=== PATIENT | female | born 1955 | race African-American/Black ===

== ENCOUNTER 2019-05-13 07:24 | Inpatient (IN) | payer OTHER ==
[2019-05-05 12:37] VITALS: BMI 27.6
[~2019-05-13 07:24] MED LIST: BUPIVICAINE 0.25%/MORPH PF/KETOROLAC - 51ML DISP.SYRINGE IA ONE
[2019-05-13] MEDS ORDERED: TRANEXAMIC ACID 1000 MG/10 ML VIAL IVPUSH ONE (07:39)
[2019-05-13] MEDS ORDERED: CELECOXIB 200 MG CAPSULE PO ONE (07:39)
--- NOTE | 2019-05-13 08:05 | HP ---
Satellite [facility] - Chief Complaint Chief Complaint: right knee pain - Past Medical History Allergies/Adverse Reactions: Allergies Allergy/AdvReac Type Severity Reaction Status Date / Time No Known Drug Allergies Allergy Verified 05/05/19 12:27 pollen extracts AdvReac Verified 05/05/19 12:27 - Current Medications Current Medications: Home Medications Medication Instructions Recorded Montelukast Na [Singulair -] 10 mg PO DAILY 11/25/15 Tiotropium [place] [Spiriva] 1 inh IH DAILY PRN 11/25/15 Sarecycline HCl [Seysara] 1 tab PO DAILY 05/05/19 Satellite Physical Exam - Physical Examination Vital Signs: Vital Signs Period Temp Pulse Resp BP Sys/Posada Pulse Ox Last 24 Hr 98.1 F 77 18 112/52 General Appearance: Well Nourished, Well Developed, Alert & Oriented x3 ENT: Clear Lung: Normal air movement Extremities: Other (right knee- + swelling, + ttp laterally, decr rom, nvi, xrays show grade 4 lateral djd) Neurological: Intact, Alert, Oriented Satellite Impression/Plan - Impression/Plan Impression: right knee lateral djd Operative Procedure: right lateral shimon ukr Date to be Performed: 05/13/19
[2019-05-13] MEDS ORDERED: THROMBIN (RECOMBINANT) 5,000 UNIT VIAL TP ONE (08:18)
[2019-05-13] MEDS ORDERED: ceFAZolin SODIUM 1 GM VIAL ONE ×2 (08:20→09:58)
[2019-05-13] MEDS ORDERED: MIDAZOLAM HCL 2 MG/2 ML SINGLE DOSE VIAL ONE (08:45)
[2019-05-13] MEDS ORDERED: DEXAMETHASONE SOD PHOSPHATE/PF 10 MG/ML SDV ONE (08:48)
[2019-05-13] MEDS ORDERED: SODIUM CHLORIDE 0.9% P/F 10 ML VIAL IJ ONE (08:48)
[2019-05-13] MEDS ORDERED: BUPIVACAINE HCL/PF 0.5% (5 MG/ML) 30 ML VIAL IJ ONE (08:48)
[2019-05-13] MEDS ORDERED: BUPIVACAINE HCL/PF 0.5% (5MG/ML) 10 ML VIAL ONE (08:52)
[2019-05-13] MEDS ORDERED: CEFAZOLIN 2 GM in DEXTROSE 5%-WATER - 50 ML IVPB ONE (09:30)
[2019-05-13] MEDS ORDERED: BUPIVICAINE 0.25%/MORPH PF/KETOROLAC - 51ML DISP.SYRINGE IA ONE ×3 (09:30→11:15)
[2019-05-13] MEDS ORDERED: TRANEXAMIC ACID 1000 MG/10 ML VIAL ONE (09:58)
[2019-05-13] MEDS ORDERED: PROPOFOL 20 ML ONE ×3 (10:10→11:05)
[2019-05-13] MEDS ORDERED: ePHEDrine SULFATE 50 MG/1 ML AMPULE ONE (10:29)
[2019-05-13] MEDS ORDERED: PATIENT'S OWN MEDICATION (NON-FORMULARY) (Tiotropium Bromide [Spiriva] 1 INH) IH PRN (11:26)
--- NOTE | 2019-05-13 11:31 | OP ---
Operative Note - Note: Operative Date: 05/13/19 (clay) Pre-Operative Diagnosis: right knee lateral djd Operation: right lateral shimon ukr Post-Operative Diagnosis: Same as Pre-op Surgeon: Noble Fox Test Clerk: Matias Pierre Anesthesiologist/SOLUTION CONSULTANT: Virginia Sorensen Anesthesia: Spinal, Local Specimens Removed: bone fragments Estimated Blood Loss (mls): 100
[2019-05-13] MEDS ORDERED: ONDANSETRON 4 MG/2 ML VIAL IVPUSH PRN (11:52)
[2019-05-13] MEDS ORDERED: oxyCODONE HCL 5 MG TABLET PO PRN ×2 (11:53)
[2019-05-13] MEDS ORDERED: LACTATED RINGERS SOLUTION 1,000 ML IV SCH (12:00)
[2019-05-13] MEDS ORDERED: ACETAMINOPHEN 325 MG TABLET (FP) ONE (12:42)
[2019-05-13] MEDS ORDERED: ceFAZolin 2 GRAM PREMIX BAG IVPB ONE (16:00)
[2019-05-13] MEDS: ACETAMINOPHEN 325 MG TABLET (FP) PO SCH ×2 (18:24→23:41)
[2019-05-13] MEDS: oxyCODONE HCL 10 MG SUSTAINED ACTING TABLET PO SCH (22:31)
[2019-05-14 06:18] VITALS: BP 121/53; PULSE 83; TEMP 97.8
[2019-05-14] MEDS: ACETAMINOPHEN 325 MG TABLET (FP) PO SCH ×2 (06:22→12:05)
[2019-05-14] MEDS ORDERED: MAG HYDROX/AL HYDROX/SIMETH 30 ML UNIT-DOSE CUP PO PRN (09:33)
--- NOTE | 2019-05-14 09:36 | PN ---
Progress Note (short form) - Note Progress Note: Ortho Pt seen and examined s/p right lateral shimon ukr pod #1 Selected Entries 05/14/19 06:17 Temperature 97.8 F Pulse Rate 83 Respiratory 18 Rate Blood Pressure 121/53 L dressing c/d/i, calf soft, nt rom 0-90, nvi a/p PT dvt ppx pain control d/c home today f/u in 1 week
--- NOTE | 2019-05-14 09:37 | DS ---
Physical Examination Vital Signs: Vital Signs Temperature 97.8 F 05/14/19 06:17 Pulse Rate 83 05/14/19 06:17 Respiratory Rate 18 05/14/19 08:55 Blood Pressure 121/53 L 05/14/19 06:17 O2 Sat by Pulse Oximetry (%) 99 05/14/19 08:55 Discharge Summary Problems reviewed: Yes Reason For Visit: OSTEOARTHRITIS Procedures: Principal: right lateral shimon ukr Hospital Course: admitted for elective right lateral shimon ukr, post-op per protocol, stable for d /c Condition: Good - Instructions Diet, Activity, Other Instructions: Post-op Instructions-Partial Knee Replacement Call the office for a follow-up appointment in 1 week - [phone] Aspirin 325mg daily for 6 weeks. Pain medication was sent into your pharmacy. Apply Graduated Compression Stockings (TEDs) to both lower extremities- remove daily for hygiene ONLY Apply Sequential Compression Device (SCDs) to both Lower extremities remove for PT and hygiene ONLY Apply cold packs to affected area for 15 minutes every 2 hours. Physical Therapist will come to your home for the first 5 days. You will be set up with outpatient PT at your first post-operative visit. Patient may ambulate as tolerated-encourage self care (at least every 2-3 hours while awake) with walker or cane Maintain Aquacel (waterproof) dressing to operative wound (will be removed by surgeon at first office visit) Shower with Aquacel dressing in place-if Aquacel integrity compromised, remove and apply dry sterile dressing and notify Orthopedist. DO NOT SHOWER unless Orthopedists approves without Aquacel dressing CONTACT THE OFFICE FOR ANY CHANGE IN YOUR CONDITION (for example-fever greater than 102 degrees, excessive bleeding from operative site, purulent drainage, severe swelling or pain) GO TO THE EMERGENCY ROOM IF THERE IS A MEDICAL EMERGENCY Knee Precautions: * Keep a rolled towel under affected heel while in bed or chair (to keep knee in extension) * Keep affected leg elevated except during mealtimes * DO NOT PLACE PILLOW UNDER AFFECTED KNEE * If you have any questions, please do not hesitate to call the office - [phone]. Referrals: Noble Fox MD [Staff Physician] - Disposition: VNS/HOME HEALTH CARE - Home Medications Comprehensive Discharge Medication List: Ambulatory Orders Montelukast Na [Singulair -] 10 mg PO DAILY 08/25/16 Tiotropium [place] [Spiriva] 1 inh IH DAILY PRN 11/25/15 Sarecycline HCl [Seysara] 1 tab PO DAILY 05/05/19 Aspirin Coated [Ecotrin -] 325 mg PO DAILY tablet. 05/13/19 Aspirin [ASA -] 325 mg PO DAILY #60 tablet 05/13/19 Oxycodone HCl/Acetaminophen [Percocet 5-325 mg Tablet -] 1 - 2 tab PO Q6H #50 tab MDD 8 05/13/19
[2019-05-14] MEDS ORDERED: ASPIRIN 325 MG ENTERIC COATED TABLET (FP) PO SCH (10:00)
[2019-05-14] MEDS ORDERED: GABAPENTIN 300 MG CAPSULE PO SCH (10:00)
[2019-05-14] MEDS ORDERED: [UNRECOGNIZED DRUG - OTHER] PO SCH (10:00)
[2019-05-14] MEDS: oxyCODONE HCL 10 MG SUSTAINED ACTING TABLET PO SCH (10:05)
--- NOTE | 2019-05-14 12:37 | PN ---
Progress Note (short form) - Note Progress Note: Post op day#1.S/P Right knee MARZENA plasty under spinal anesthesia with adductor canal and slective tibial N block uneventful.Patient stable and has minimal pain for which she is on medication.No any anesthesia related problem.Patient Dc from the anesthesia care.
[2019-05-14] MEDS ORDERED: MONTELUKAST NA 10 MG TABLET PO SCH (22:00)
--- NOTE | 2019-05-15 13:41 | OP ---
DATE OF OPERATION: 05/14/2019 ADDENDUM To the job #[id number] The lateral parapatellar arthrotomy was then closed using No. 1 Vicryl, 0 and 2-0 for subcutaneous and 3-0 Monocryl subcuticular with skin glue for skin, 4-0 undyed Vicryl for pin sites. Sterile pressure Aquacel dressing was applied. Patient was awakened from anesthesia and transferred to recovery room in stable condition. No complications. Estimated blood loss: Negligible. William [id number]
--- NOTE | 2019-05-15 13:42 | OP ---
DATE OF OPERATION: 05/13/2019 PREOPERATIVE DIAGNOSIS: Degenerative joint disease right knee. POSTOPERATIVE DIAGNOSIS: Degenerative joint disease right knee. PROCEDURE: Right lateral unicompartmental knee replacement with robotic-assisted navigation (MAKOplasty). SURGICAL ATTENDING: Karin Fox MD NAVIGATING OFFICER: NILE Mojica ANESTHESIA: Regional and spinal. CLOSURE: Lateral MARZENA components with a 4 femur, 4 tibia, 8 polyethylene, number 1 Vicryl for fascia, 0 and 2-0 subcutaneous, 3-0 Monocryl subcuticular with skin glue for skin, 4-0 undyed Vicryl for pin sites. ESTIMATED BLOOD LOSS: Negligible. COMPLICATIONS: None. CONDITION: To Recovery in stable condition. DESCRIPTION OF OPERATIVE PROCEDURE: Patient was taken to the operating room on May 13, 2019. Spinal and regional anesthesia was administered by the anesthesiologist. IV Kefzol and TXA were administered prophylactically prior to the case. The right lower extremity was prepped and draped in the usual sterile fashion. A 6-cm longitudinal incision on the lateral aspect of the patellar tendon and the distal patella was incised. Hemostasis was achieved with Bovie cautery. The patient had very thin subcutaneous. Gently dissection was made both posteriorly and anteriorly just to make sufficient flaps to perform the procedure. Medial parapatellar arthrotomy was then made from the mid patella to the tibial tubercle. Any bleeders were cauterized with a Bovie cautery. Partial fat pad excision was performed. Subperiosteal dissection was performed on the proximal tibia until a sufficient amount of the lateral compartment was exposed. The anterior horn of the lateral meniscus was also detached at this time. Check points were malleted in both the tibia and the femur. Through 2 small stab incisions in the femur and then again in the tibia, one handbreadth above the patella and one handbreadth below the tibial tubercle, respectively, 2 threaded pins were drilled through the outer cortex and then up until but not through the posterior cortex. To these pins were assembled the navigation arrays for the MARZENA robotic system. The knee was then registered by obtaining points on the center of rotation of the hip and medial and lateral malleoli and multiple points on both the tibia and femur. Excellent registration was confirmed by "popping the bubbles." At this time, osteophytes around the tibia and femur on the lateral side of the knee were debrided using the rongeur. Inspection of the joint revealed grade IV eburnation of the lateral compartments. The trochlea and patella looked quite good. The knee was taken through range of motion and was stressed at 0, 30, 60, 90, and 120 degrees in order to obtain a looseness/tightness graph on the [employer] navigation computer. Excellent tracking of the femur on the tibia was confirmed and the virtual position of the components were optimized to get an excellent graph. The robot was then brought into the field and used to cut both tibia and the femur and to bur the keel and the holes in both the femur and the tibia. The knee was thoroughly irrigated. There was a cyst on the proximal tibia that was curetted of soft tissue. Trial components were then placed in the knee with an 8-mm spacer. The knee was found to go from full extension to full flexion with excellent tracking, excellent stability to varus and valgus stress throughout the range of motion. The height of the femoral component was found to be flush with the residual articular femoral cartilage. The trial components were then removed. The knee was then exsanguinated with an Esmarch bandage. The knee was thoroughly irrigated and cleaned and dried. Gelfoam and thrombin sponge was placed on both bleeding surfaces. At this time, cement was mixed on the back table with antibiotic cement and using modern generation cement technique. The femoral and tibial components were then cemented in place. All excess cement was removed. Trial number 8 polyethylene was applied and the knee was taken through range of motion and compressed with valgus stress being applied and placed in extension. After the cement hardened, the knee was thoroughly inspected to remove all and any excess cement that had been extruded from the interface, both on the femoral and the tibial sides. Care was especially taken to go posteriorly where frequent cement can be difficult to find, but we inspected this thoroughly and were able to rule out any back wall cement. The knee was thoroughly antibiotic irrigated once again. The real number 8 component was then clipped into place and range of motion showed full extension, full flexion, with excellent tracking of the patella and excellent stability of varus and valgus throughout the range of motion. KARIN FOX M.D. [id number]
== END 2019-05-14 13:00 | disposition home health service (06) | DRG 470 ==
LOC: FM/S 07:24 → EDSTATUS 09:30 → FM/S 14:38
PROVIDERS: ADMIT Orthopaedic Surgery; ATTEND Orthopaedic Surgery
PROC: 8E0Y0CZ Robotic Assisted Procedure of Lower Extremity, Open Approach (ICD-10-PCS; 2019-05-13)
PROC: 0SRC0M9 Replacement of Right Knee Joint with Lateral Unicondylar Synthetic Substitute, Cemented, Open Approach (ICD-10-PCS; principal; 2019-05-13 10:15)
DX: M17.11 Unilateral primary osteoarthritis, right knee (principal)
CPT/HCPCS: 73560-TC-RT-FY; 94760; 97116-GP; 97162-GP

== ENCOUNTER 2019-10-14 09:47 | Day surgery (SDC) | payer OTHER ==
[2019-10-06 13:45] VITALS: BMI 24.2
--- NOTE | 2019-10-14 07:35 | HP ---
Satellite [facility] - Chief Complaint Chief Complaint: left knee pain - Past Medical History Allergies/Adverse Reactions: Allergies Allergy/AdvReac Type Severity Reaction Status Date / Time No Known Drug Allergies Allergy Verified 10/06/19 13:35 pollen extracts AdvReac Verified 10/06/19 13:35 - Current Medications Current Medications: Home Medications Medication Instructions Recorded Montelukast Na [Singulair -] 10 mg PO DAILY 11/25/15 Sarecycline HCl [Seysara] 1 tab PO DAILY 05/05/19 Atorvastatin Ca [Lipitor] 10 mg PO DAILY 10/06/19 Budesonide/Formeterol Fumarate 1 inh PO DAILY PRN 10/06/19 [SYMBICORT 160/4.5mcg -] Ergocalciferol (Vitamin D2) 50 mcg PO WEEKLY 10/06/19 [Vitamin D2] Satellite Physical Exam - Physical Examination General Appearance: Well Nourished, Well Developed, Alert & Oriented x3 ENT: Clear Lung: Normal air movement Extremities: Other (left knee- +swelling, + ttp medially, decr rom, nvi, xrays show grade 4 lateral compartment djd) Neurological: Intact, Alert, Oriented Satellite Impression/Plan - Impression/Plan Impression: left knee lateral djd Operative Procedure: left lateral shimon ukr Date to be Performed: 10/14/19
[2019-10-14] MEDS: CELECOXIB 200 MG CAPSULE PO ONE ×2 (11:06→15:53)
[2019-10-14] MEDS ORDERED: CEFAZOLIN 2 GM in DEXTROSE 5%-WATER - 50 ML IVPB ONE (12:00)
[2019-10-14] MEDS ORDERED: TRANEXAMIC ACID 1000 MG/10 ML VIAL IVPUSH ONE (12:00)
[2019-10-14] MEDS ORDERED: BUPIVICAINE 0.25%/MORPH PF/KETOROLAC - 51ML DISP.SYRINGE IA ONE ×3 (12:00→14:37)
[2019-10-14] MEDS ORDERED: ceFAZolin SODIUM 1 GM VIAL ONE (12:01)
[2019-10-14] MEDS ORDERED: THROMBIN (RECOMBINANT) 5,000 UNIT VIAL TP ONE (12:01)
[2019-10-14] MEDS ORDERED: ROPIVACAINE HCL 0.5% 30ML VIAL ONE (12:16)
[2019-10-14] MEDS ORDERED: MIDAZOLAM HCL 2 MG/2 ML SINGLE DOSE VIAL ONE ×3 (12:16→13:32)
[2019-10-14] MEDS ORDERED: SUCCINYLCHOLINE CHLORIDE 200 MG/10 ML SYRINGE ONE (13:00)
[2019-10-14] MEDS ORDERED: PROPOFOL 20 ML ONE (13:00)
[2019-10-14] MEDS ORDERED: BUDESONIDE/FORMETEROL FUMARATE 160/4.5 mcg INHALER IH PRN (13:00)
[2019-10-14] MEDS ORDERED: MAG HYDROX/AL HYDROX/SIMETH 30 ML UNIT-DOSE CUP PO PRN (13:01)
[2019-10-14] MEDS ORDERED: ONDANSETRON 4 MG/2 ML VIAL IVPUSH PRN (13:01)
[2019-10-14] MEDS ORDERED: LACTATED RINGERS SOLUTION 1,000 ML IV SCH (13:15)
[2019-10-14] MEDS ORDERED: ePHEDrine SULFATE 50 MG/1 ML AMPULE ONE (13:34)
[2019-10-14] MEDS ORDERED: PHENYLEPHRINE HCL 10 MG/1 ML SINGLE DOSE VIAL ONE (14:02)
--- NOTE | 2019-10-14 15:10 | OP ---
Operative Note - Note: Operative Date: 10/14/19 (clay) Pre-Operative Diagnosis: left knee lateral djd Operation: left lateral shimon ukr Post-Operative Diagnosis: Same as Pre-op Surgeon: Noble Fox Manager Manufacturing: Matias Pierre Anesthesia: Spinal, Local Specimens Removed: bone fragments Estimated Blood Loss (mls): 100
[2019-10-14] MEDS ORDERED: traMADol HCL 50 MG TABLET PO PRN (15:12)
[2019-10-14] MEDS ORDERED: oxyCODONE HCL 5 MG TABLET PO PRN (15:12)
[2019-10-14] MEDS: ACETAMINOPHEN 325 MG TABLET (FP) PO SCH ×2 (15:57→21:03)
[2019-10-14] MEDS ORDERED: PT OWN MED DRAWER 7, Y5N ONE (16:32)
[2019-10-14] MEDS: CEFAZOLIN 2 GM/D5W 2 GRAM/50 ML ML IVPB SCH (21:03)
[2019-10-14] MEDS: SENNOSIDES/DOCUSATE COMBO (SENNA PLUS) TABLET (UD) PO SCH (21:04)
[2019-10-14] MEDS: oxyCODONE HCL 5 MG TABLET PO PRN (21:05)
[2019-10-15] MEDS ORDERED: PT OWN MED DRAWER 7, Y5N ONE ×2 (00:27→11:06)
[2019-10-15] MEDS: oxyCODONE HCL 5 MG TABLET PO PRN ×2 (00:29→09:07)
[2019-10-15] MEDS: ACETAMINOPHEN 325 MG TABLET (FP) PO SCH ×2 (03:06→09:07)
[2019-10-15] MEDS: CEFAZOLIN 2 GM/D5W 2 GRAM/50 ML ML IVPB SCH (05:51)
[2019-10-15] MEDS ORDERED: ASPIRIN 325 MG TABLET PO SCH (08:00)
[2019-10-15] MEDS: SENNOSIDES/DOCUSATE COMBO (SENNA PLUS) TABLET (UD) PO SCH (09:04)
--- NOTE | 2019-10-15 09:50 | PN ---
Progress Note (short form) - Note Progress Note: Ortho Pt seen and examined s/p left lateral shimon ukr pod #1 Selected Entries 10/15/19 05:00 Temperature 97.5 F L Pulse Rate 54 L Respiratory 18 Rate Blood Pressure 114/56 L dressing c/d/i, calf soft, nt rom 0-60, nvi a/p PT dvt ppx pain control d/c home today f/u in 1 week
--- NOTE | 2019-10-15 09:51 | DS ---
Physical Examination Vital Signs: Vital Signs Temperature 97.5 F L 10/15/19 05:00 Pulse Rate 54 L 10/15/19 05:00 Respiratory Rate 18 10/15/19 05:00 Blood Pressure 114/56 L 10/15/19 05:00 O2 Sat by Pulse Oximetry (%) 100 10/15/19 05:00 Discharge Summary Problems reviewed: Yes Reason For Visit: OSTEOARTHRITIS Procedures: Principal: left lateral shimon ukr Hospital Course: admitted for elective left lateral shimon ukr, post-op per protocol, stable for d/c Condition: Good - Instructions Diet, Activity, Other Instructions: Post-op Instructions-Partial Knee Replacement Call the office for a follow-up appointment in 1 week - [phone] Aspirin 325mg daily for 6 weeks. Pain medication was sent into your pharmacy. Apply Graduated Compression Stockings (TEDs) to both lower extremities- remove daily for hygiene ONLY Apply Sequential Compression Device (SCDs) to both Lower extremities remove for PT and hygiene ONLY Apply cold packs to affected area for 15 minutes every 2 hours. Physical Therapist will come to your home for the first 5 days. You will be set up with outpatient PT at your first post-operative visit. Patient may ambulate as tolerated-encourage self care (at least every 2-3 hours while awake) with walker or cane Maintain Aquacel (waterproof) dressing to operative wound (will be removed by surgeon at first office visit) Shower with Aquacel dressing in place-if Aquacel integrity compromised, remove and apply dry sterile dressing and notify Orthopedist. DO NOT SHOWER unless Orthopedists approves without Aquacel dressing CONTACT THE OFFICE FOR ANY CHANGE IN YOUR CONDITION (for example-fever greater than 102 degrees, excessive bleeding from operative site, purulent drainage, severe swelling or pain) GO TO THE EMERGENCY ROOM IF THERE IS A MEDICAL EMERGENCY Knee Precautions: * Keep a rolled towel under affected heel while in bed or chair (to keep knee in extension) * Keep affected leg elevated except during mealtimes * DO NOT PLACE PILLOW UNDER AFFECTED KNEE * If you have any questions, please do not hesitate to call the office - [phone]. Referrals: Noble Fox MD [Staff Physician] - Disposition: VNS/HOME HEALTH CARE - Home Medications Comprehensive Discharge Medication List: Ambulatory Orders Montelukast Na [Singulair -] 10 mg PO DAILY 11/25/15 Sarecycline HCl [Seysara] 1 tab PO DAILY 05/05/19 Atorvastatin Ca [Lipitor] 10 mg PO DAILY 10/06/19 Budesonide/Formeterol Fumarate [SYMBICORT 160/4.5mcg -] 1 inh PO DAILY PRN 10/06/19 Ergocalciferol (Vitamin D2) [Vitamin D2] 50 mcg PO WEEKLY 10/06/19 Aspirin [ASA -] 325 mg PO DAILY@0800 tablet 10/14/19 Oxycodone HCl/Acetaminophen [Percocet 5-325 mg Tablet] 1 - 2 tab PO Q6H #30 tab MDD 6 10/14/19
[2019-10-15 09:59] VITALS: BP 133/57; PULSE 69; TEMP 97.9
[2019-10-15] MEDS ORDERED: PANTOPRAZOLE 40 MG TABLET PO SCH (10:00)
[2019-10-15] MEDS ORDERED: [UNRECOGNIZED DRUG - OTHER] PO SCH (10:00)
[2019-10-15] MEDS ORDERED: MULTIVITAMINS (DAILY MVI) TABLET (FP) PO SCH (10:00)
--- NOTE | 2019-10-15 11:12 | OP ---
DATE OF OPERATION: 10/14/2019 PREOPERATIVE DIAGNOSIS: Left knee degenerative joint disease. POSTOPERATIVE DIAGNOSIS: Left knee degenerative joint disease. PROCEDURE: Left lateral unicompartmental knee replacement with robotic-assisted navigation (MARZENA plasty). SURGICAL ATTENDING: Karin Fox MD JEWELRY SALES: NILE Mojica ANESTHESIA: Regional and spinal. CLOSURE: Lateral MARZENA components with a 4 femur, 4 tibia, 8 polyethylene, No. 1 Vicryl fascia, 0 and 2-0 for subcutaneous, 3-0 Monocryl subcuticular with skin glue, 3-0 nylon for pin sites. ESTIMATED BLOOD LOSS: Less than 100 mL. COMPLICATIONS: None. CONDITION: To the recovery room in stable condition. DESCRIPTION OF OPERATIVE PROCEDURE: The patient was taken to the operating room on October 14, 2019. Regional and spinal anesthesia were administered by the anesthesiologist. IV Kefzol administered prophylactically prior to the case. A well-padded pneumatic tourniquet was placed on the left proximal thigh. Left lower extremity was prepped and draped in the usual sterile fashion. A 6-cm longitudinal incision over the lateral aspect of the knee just lateral to the patellar tendon was incised, hemostasis achieved with Bovie cautery. Sharp dissection was carried down to the level of the fascia, which was then opened the entire length of the incision, exposing the lateral compartment of the knee. Subperiosteal dissection was done in the anterolateral proximal tibia, exposing the entire lateral compartment anteriorly. This was facilitated by transecting the anterior horn of the lateral meniscus. Checkpoints were malleted in both the tibia and the femur 1 handbreadth above the patella and 1 handbreadth below the tibial tubercle; where the locations were, 2 stab incisions for which 2 parallel threaded pins were drilled in both the femur and the tibia, respectively. Through these pins were fastened the navigation arrays, one on the femur, one on the tibia. The knee was then registered with the navigation device by ascertaining the center rotation of the hip and medial and lateral malleoli, and checkpoints on both the femur and the tibia. Multiple points on the femur and the tibia were then registered. Excellent registration was then confirmed by "popping the bubbles." A rongeur was used to cut the osteophytes on the lateral aspect of the knee. The knee was then ranged from 0 to 120, ascertaining appropriate balancing by stressing the knee with a varus stress in 0, 30, 60, 90, and 120 degrees of flexion. We virtually moved the components on the robot to obtain the desired virtual position of the components. The robot was then brought into the field. The femur and the tibia were then cut to the plan. Trial components were then applied. Knee was taken through a range of motion, found to have excellent range of motion with excellent stability throughout. The pins were all removed. The leg was exsanguinated with an Esmarch bandage. The knee was thoroughly irrigated. The real components were then cemented in using antibiotic cement. The real polyethylene was then clipped into place after the knee was thoroughly inspected to remove all excess cement. Again, range of motion and stability were described earlier. The fascia was then closed using 0 Vicryl, 2-0 subcutaneous, and 3-0 Monocryl subcuticular with skin glue for skin. Nylon 4-0 was used to close the pin sites. Sterile pressure dressing was applied. Patient awakened from anesthesia and transferred to recovery room in stable condition. X-rays revealed excellent position of the components. The tourniquet was only inflated for the 20 minutes necessary to cement in the components, then was deflated. Estimated blood loss was less than 100 mL. No complications. KARIN FOX M.D. [id number]
[2019-10-15] MEDS ORDERED: MONTELUKAST NA 10 MG TABLET PO SCH (22:00)
[2019-10-15] MEDS ORDERED: ATORVASTATIN CA 10 MG TABLET (FP) PO SCH (22:00)
== END 2019-10-15 12:37 | disposition home health service (06) ==
LOC: FASU 09:47 → FM/S 10:46 → FASU 10-15 12:37
PROVIDERS: ATTEND Orthopaedic Surgery
PROC: 8E0YXBZ Computer Assisted Procedure of Lower Extremity (ICD-10-PCS; 2019-10-14)
PROC: 8E0Y0CZ Robotic Assisted Procedure of Lower Extremity, Open Approach (ICD-10-PCS; 2019-10-14)
PROC: 0SRD0M9 Replacement of Left Knee Joint with Lateral Unicondylar Synthetic Substitute, Cemented, Open Approach (ICD-10-PCS; principal; 2019-10-14 13:36)
DX: M17.12 Unilateral primary osteoarthritis, left knee (principal)
CPT/HCPCS: 20985; 27446; C1776; S2900; 73560-TC-LT-FY; 94760; 97010-GP; 97116-GP; 97162-GP

== ENCOUNTER 2023-05-24 04:25 | Day surgery (SDC) | payer BC, OTHER ==
[2023-05-23 13:54] VITALS: BMI 28.1
[2023-05-24 07:22] VITALS: TEMP 98.2
[2023-05-24 08:45] VITALS: RESP 17
[2023-05-24 08:53] VITALS: BP 115/57; PULSE 65
== END 2023-05-24 09:01 | disposition home or self-care (01) ==
LOC: JASU-ENDO 04:25
PROVIDERS: ATTEND Internal Medicine Gastroenterology
PROC: 0DBN8ZX Excision of Sigmoid Colon, Via Natural or Artificial Opening Endoscopic, Diagnostic (ICD-10-PCS; principal; 2023-05-24 08:00)
DX: Z12.11 Encounter for screening for malignant neoplasm of colon (principal); D12.7 Benign neoplasm of rectosigmoid junction
CPT/HCPCS: 88305-TC